=== PATIENT | female | born 1940 | race Caucasian/White ===

== ENCOUNTER 2017-04-20 10:28 | Emergency (ER) | payer MEDICARE, MEDICAID ==
[~2017-04-20] VITALS: Ht 172.7 cm; Wt 83.4 kg
[2017-04-20 11:21] LABS: BASOPHILS # (AUTO) 0.02 x10^3/uL (0-0.1); BASOPHILS % (AUTO) 0 % (0-1); EOSINOPHILS % (AUTO) 0 % (1-7); LYMPHOCYTES # (AUTO) 0.62 x10^3/uL (1-3.4); LYMPHOCYTES % (AUTO) 10 % (22-44); MD NO; MEAN CORPUSCULAR HEMOGLOBIN 30.5 pg (27.0-34.8); MEAN CORPUSCULAR HGB CONC 33.8 g/dL (32.4-35.8); MEAN CORPUSCULAR VOLUME 90.4 fL (80-100); MEAN PLATELET VOLUME 9.7 fL (7.4-10.4); MONOCYTES # (AUTO) 0.84 x10^3/uL (0.2-0.8); MONOCYTES % (AUTO) 14 % (2-9); NEUTROPHILS % (AUTO) 76 % (42-75); PLATELET COUNT 179 x10^3/uL (130-400); RED BLOOD COUNT 5.48 x10^6/uL (3.82-5.3); RED CELL DISTRIBUTION WIDTH 13.8 % (9.6-15.2)
[2017-04-20] MEDS ORDERED: PROMETHAZINE/COD. 10MG/6.25MG/5 ML ORAL SOL PO ONE (11:30)
[2017-04-20 11:53] LABS: RAPID INFLUENZA A POSITIVE (Negative); RAPID INFLUENZA B Negative (Negative)
[2017-04-20 12:09] LABS: ALBUMIN 3.5 g/dL (3.4-5.0); ANION GAP 7 mmol/L (5-15); CALCIUM 8.4 mg/dL (8.5-10.1); CHLORIDE 106 mmol/L (98-107); CREATININE 0.97 mg/dL (0.55-1.02)
[2017-04-20 13:20] VITALS: BP 125/78
== END 2017-04-20 13:54 | disposition home or self-care (01) ==
LOC: ED 11:11
DX: J09.X2 Influenza due to identified novel influenza A virus with other respiratory manifestations (principal); I25.2 Old myocardial infarction; Z86.73 Personal history of transient ischemic attack (TIA), and cerebral infarction without residual deficits
CPT/HCPCS: 36415; 71010; 80048; 82040; 85025; 87400; 93005; 99285

== ENCOUNTER 2017-11-24 07:30 | Emergency (ER) | payer MEDICARE, MEDICAID ==
[~2017-11-24] VITALS: Ht 167.6 cm; Wt 80.6 kg
[2017-11-24 07:33] VITALS: BP 135/80
== END 2017-11-24 09:15 | disposition home or self-care (01) ==
LOC: ED 08:55
DX: K08.89 Other specified disorders of teeth and supporting structures (principal); I25.2 Old myocardial infarction; Z88.1 Allergy status to other antibiotic agents; Z88.0 Allergy status to penicillin; Z88.8 Allergy status to other drugs, medicaments and biological substances
CPT/HCPCS: 99283

== ENCOUNTER 2019-04-28 00:06 | Emergency (ER) | payer MEDICARE, MEDICAID ==
[~2019-04-28] VITALS: Ht 162.6 cm; Wt 58.0 kg
[2019-04-28 00:16] VITALS: BP 108/41
== END 2019-04-28 01:01 | disposition home or self-care (01) ==
LOC: ED 00:30
DX: B86 Scabies (principal)
CPT/HCPCS: 99283

== ENCOUNTER 2019-05-13 08:22 | Emergency (ER) | payer MEDICARE, MEDICAID ==
[~2019-05-13] VITALS: Ht 165.1 cm; Wt 61.4 kg
[2019-05-13 09:29] LABS: BASOPHILS # (AUTO) 0.02 x10^3/uL (0-0.1); BASOPHILS % (AUTO) 0 % (0-1); EOSINOPHILS # (AUTO) 0.03 x10^3/uL (0-0.4); EOSINOPHILS % (AUTO) 0 % (1-7); LYMPHOCYTES # (AUTO) 0.62 x10^3/uL (1-3.4); LYMPHOCYTES % (AUTO) 6 % (22-44); MD NO; MEAN CORPUSCULAR HGB CONC 33.5 g/dL (32.4-35.8); MEAN CORPUSCULAR VOLUME 92.6 fL (80-100); MEAN PLATELET VOLUME 8.9 fL (7.4-10.4); MONOCYTES # (AUTO) 0.72 x10^3/uL (0.2-0.8); MONOCYTES % (AUTO) 7 % (2-9); NEUTROPHILS # (AUTO) 9.76 x10^3/uL (1.8-6.8); NEUTROPHILS % (AUTO) 88 % (42-75); PLATELET COUNT 223 x10^3/uL (130-400); RED BLOOD COUNT 4.93 x10^6/uL (3.82-5.3); RED CELL DISTRIBUTION WIDTH 13.6 % (9.6-15.2)
[2019-05-13 09:37] LABS: ALANINE AMINOTRANSFERASE 9 U/L (12-78); ALBUMIN 2.9 g/dL (3.4-5.0); ANION GAP 7 mmol/L (5-15); CALCIUM 8.4 mg/dL (8.5-10.1); CHLORIDE 110 mmol/L (98-107); CREATININE 0.66 mg/dL (0.55-1.02)
[2019-05-13 09:42] LABS: ALKALINE PHOSPHATASE 62 U/L (45-117); TOTAL PROTEIN 6.4 g/dL (6.4-8.2); TROPONIN I < 0.015 ng/mL (0.000-0.045)
--- NOTE | 2019-05-13 11:22 | NUR ---
PIV INSERTED. CALLED CT AND NOTIFIED ANA IN CT THAT PATIENT IS READY FOR CT.
[2019-05-13] MEDS ORDERED: OMNIPAQUE 350 MG/ML, 100ML BOTTLE ONE (11:53)
--- NOTE | 2019-05-13 12:06 | NUR ---
BREAK RN: PT OOB TO BEDSIDE COMMODE WITH MIN ASSIST. VOIDED W/O DIFFICULTY AND RTD TO BED W/O INCIDENT. VSS. WARM BLANKET PROVIDED. CALL LIGHT W/I REACH
[2019-05-13 12:07] VITALS: BP 126/62
--- NOTE | 2019-05-13 12:28 | NUR ---
BREAK RN: Patient/Caregiver given discharge instructions and they have confirmed that they understand the instructions. Patient in personal wheelchair.
== END 2019-05-13 12:28 | disposition home or self-care (01) ==
LOC: ED 12:18
DX: B34.9 Viral infection, unspecified (principal); I44.7 Left bundle-branch block, unspecified; I25.2 Old myocardial infarction; J44.9 Chronic obstructive pulmonary disease, unspecified; Z86.73 Personal history of transient ischemic attack (TIA), and cerebral infarction without residual deficits; Z90.710 Acquired absence of both cervix and uterus
CPT/HCPCS: 36415; 71046; 71275; 80053; 83880; 84484; 85025; 85379; 93005; 99284; Q9967

== ENCOUNTER 2020-07-02 12:46 | Inpatient (IN) | payer MEDICARE, MEDICAID ==
[~2020-07-02] VITALS: Ht 162.6 cm; Wt 66.3 kg
--- NOTE | 2020-07-02 13:43 | NUR ---
pt is an 79f who lives at home with her son. She comes in today with complaints of increasing back pain. She has chronic back issues but within the last week, she has been unable to sleep, change positions in bed or get up and walk. She describes the pain as intermittant spasms and is teary on the gurney. She is a max assist to transfer from her wheelchair to the bed. Son is at bedside. , BP, SPo2 monitors in place and call light within reach.
[2020-07-02] MEDS ORDERED: MORPHINE SULFATE 4 MG/ML, 1ML IVPush PRN (14:00)
[2020-07-02] MEDS ORDERED: ONDANSETRON 2MG/ML, 2ML IVPush ONE (14:00)
[2020-07-02] MEDS ORDERED: MORPHINE SULFATE 4 MG/ML, 1ML ONE (14:10)
[2020-07-02] MEDS ORDERED: ONDANSETRON 2MG/ML, 2ML ONE (14:10)
[2020-07-02 14:18] LABS: BASOPHILS % (AUTO) 1 % (0-1); EOSINOPHILS % (AUTO) 1 % (1-7); LYMPHOCYTES % (AUTO) 12 % (22-44); MEAN CORPUSCULAR HEMOGLOBIN 30.7 pg (27.0-34.8); MONOCYTES % (AUTO) 7 % (2-9); NEUTROPHILS % (AUTO) 79 % (42-75); PLATELET COUNT 181 x10^3/uL (130-400); RED BLOOD COUNT 5.02 x10^6/uL (3.82-5.3); RED CELL DISTRIBUTION WIDTH 13.1 % (9.6-15.2)
[2020-07-02 14:26] LABS: MD NO
[2020-07-02 14:30] LABS: ALANINE AMINOTRANSFERASE 14 U/L (12-78); ALBUMIN 2.9 g/dL (3.4-5.0); ANION GAP 8 mmol/L (5-15); CHLORIDE 113 mmol/L (98-107); CREATININE 0.62 mg/dL (0.55-1.02)
[2020-07-02 14:33] LABS: ALKALINE PHOSPHATASE 67 U/L (45-117); BILIRUBIN,TOTAL 0.7 mg/dL (0.2-1.0); TOTAL PROTEIN 5.9 g/dL (6.4-8.2)
[2020-07-02] MEDS ORDERED: OXYcodone/APAP 5/325MG TABLET ONE (14:39)
[2020-07-02] MEDS ORDERED: OXYcodone/APAP 5/325MG TABLET PO ONE (15:00)
[2020-07-02 15:39] LABS: MICROSCOPIC INDICATED
--- NOTE | 2020-07-02 16:04 | NUR ---
PT RESTING COMFORTABLY ON GURNEY WITH SON AT BEDSIDE. SHE STATES THE PERCOCET HAS HELPED A LOT. 06/02 PAIN NOW. ALL MONITORS IN PLACE AND CALL LIGHT WITHIN REACH.
--- NOTE | 2020-07-02 16:13 | NUR ---
PT REQUESTS A PRESCRIPTION FOR AN ELEVATED TOILET SEAT AND FOR THE PERCOCET SHE WAS GIVEN HERE IN THE ER.
--- NOTE | 2020-07-02 17:11 | NUR ---
PT LIVES WITH SONALFREDO [phone]
--- NOTE | 2020-07-02 17:21 | NUR ---
pt is resting comfortably on gurney. respirations even and unlabored. call light within reach and all monitors inplace. awaiting admit orders.
[2020-07-02] MEDS ORDERED: POLYETHYLENE GLYCOL 17 GM PACKET PO PRN (18:00)
[2020-07-02] MEDS ORDERED: ONDANSETRON ODT 4 MG PO PRN (18:00)
[2020-07-02] MEDS ORDERED: BISACODYL 10 MG SUPP PR PRN (18:00)
[2020-07-02] MEDS ORDERED: ACETAMINOPHEN 325 MG TABLET PO PRN (18:00)
[2020-07-02] MEDS ORDERED: CIPROFLOXACIN/PMX 400MG/200ML 200 ML IVPB ONE (19:00)
--- NOTE | 2020-07-02 19:04 | NUR ---
REPORT FROM YENNY WRIGHT. PIV PLACED. PT RESTING WITH NO NEEDS AT THIS TIME. CALL LIGHT IN REACH
--- NOTE | 2020-07-02 19:23 | NUR ---
ATTEMPTED TO CALL REPORT ON PT. RN UNABLE TO TAKE REPORT BECAUSE SHE IS STILL RECIEVE REPORT ON FLOOR.
[2020-07-02] MEDS ORDERED: NITROFURANTOIN (MACROBID) 100 MG CAPSULE PO SCH (21:00)
[2020-07-02 22:16] VITALS: BP 152/88
[2020-07-02] MEDS: LIDODERM 5% PATCH TD SCH (22:29)
[2020-07-02] MEDS: SODIUM CHLORIDE 0.9% 1,000 ML IV SCH (22:29)
[2020-07-03 02:06] VITALS: BP 124/86
[2020-07-03 05:54] LABS: BASOPHILS % (AUTO) 1 % (0-1); EOSINOPHILS % (AUTO) 3 % (1-7); LYMPHOCYTES % (AUTO) 28 % (22-44); MEAN CORPUSCULAR HGB CONC 34.3 g/dL (32.4-35.8); MEAN PLATELET VOLUME 9.9 fL (7.4-10.4); MONOCYTES % (AUTO) 9 % (2-9); NEUTROPHILS % (AUTO) 59 % (42-75); PLATELET COUNT 166 x10^3/uL (130-400); RED BLOOD COUNT 4.65 x10^6/uL (3.82-5.3); RED CELL DISTRIBUTION WIDTH 13.1 % (9.6-15.2)
[2020-07-03 05:58] LABS: ANION GAP 7 mmol/L (5-15); CALCIUM 7.9 mg/dL (8.5-10.1); CHLORIDE 112 mmol/L (98-107)
[2020-07-03 06:01] LABS: CREATININE 0.52 mg/dL (0.55-1.02); MD NO
[2020-07-03 07:30] VITALS: BP 118/68
[2020-07-03] MEDS: SENNA/DOCUSATE TABLET PO SCH (09:00)
[2020-07-03] MEDS: LIDODERM REMOVE PATCH NOTE XX SCH ×2 (09:00→21:25)
[2020-07-03] MEDS: CIPROFLOXACIN/PMX 400MG/200ML 200 ML IV SCH ×2 (10:33→21:26)
[2020-07-03 12:55] VITALS: BP 120/79
[2020-07-03] MEDS: SODIUM CHLORIDE 0.9% 1,000 ML IV SCH (14:54)
[2020-07-03 20:40] VITALS: BP 124/68
[2020-07-03] MEDS: LIDODERM 5% PATCH TD SCH (21:27)
[2020-07-03] MEDS: DIPHENHYDRAMINE 25 MG CAPSULE PO PRN (21:28)
[2020-07-04 01:33] VITALS: BP 115/66
[2020-07-04] MEDS: SODIUM CHLORIDE 0.9% 1,000 ML IV SCH ×2 (06:01→17:42)
[2020-07-04 06:13] LABS: BASOPHILS % (AUTO) 1 % (0-1); EOSINOPHILS % (AUTO) 4 % (1-7); LYMPHOCYTES % (AUTO) 30 % (22-44); MEAN CORPUSCULAR HEMOGLOBIN 30.2 pg (27.0-34.8); MEAN CORPUSCULAR HGB CONC 33.6 g/dL (32.4-35.8); MEAN PLATELET VOLUME 10.3 fL (7.4-10.4); MONOCYTES % (AUTO) 9 % (2-9); NEUTROPHILS % (AUTO) 56 % (42-75); PLATELET COUNT 159 x10^3/uL (130-400); RED BLOOD COUNT 4.61 x10^6/uL (3.82-5.3); RED CELL DISTRIBUTION WIDTH 12.9 % (9.6-15.2)
[2020-07-04 06:22] LABS: CHLORIDE 114 mmol/L (98-107)
[2020-07-04 06:35] LABS: MD NO
[2020-07-04 06:36] LABS: ALANINE AMINOTRANSFERASE 12 U/L (12-78); ALBUMIN 2.6 g/dL (3.4-5.0); ALKALINE PHOSPHATASE 54 U/L (45-117); BILIRUBIN,TOTAL 0.5 mg/dL (0.2-1.0); CALCIUM 8.2 mg/dL (8.5-10.1); CREATININE 0.58 mg/dL (0.55-1.02); TOTAL PROTEIN 5.4 g/dL (6.4-8.2)
[2020-07-04 06:57] LABS: ANION GAP 7 mmol/L (5-15)
[2020-07-04 07:06] LABS: HCT (SEDRATE) 40.6 % (34.6-47.8)
[2020-07-04 07:31] VITALS: BP 130/77
[2020-07-04] MEDS: SENNA/DOCUSATE TABLET PO SCH (09:04)
[2020-07-04] MEDS: LIDODERM REMOVE PATCH NOTE XX SCH ×2 (10:28→22:17)
[2020-07-04] MEDS: CIPROFLOXACIN/PMX 400MG/200ML 200 ML IV SCH ×2 (10:28→22:20)
[2020-07-04] MEDS ORDERED: OMNIPAQUE 350 MG/ML, 100ML BOTTLE ONE (12:30)
[2020-07-04 14:13] VITALS: BP 127/76
[2020-07-04 19:51] VITALS: BP 113/77
[2020-07-04] MEDS: LIDODERM 5% PATCH TD SCH (22:16)
[2020-07-04] MEDS: DIPHENHYDRAMINE 25 MG CAPSULE PO PRN (22:38)
[2020-07-05 03:58] VITALS: BP 121/74
[2020-07-05] MEDS: SODIUM CHLORIDE 0.9% 1,000 ML IV SCH (06:38)
[2020-07-05 07:19] VITALS: BP 131/87
[2020-07-05 07:53] LABS: ALANINE AMINOTRANSFERASE 11 U/L (12-78); ALBUMIN 2.9 g/dL (3.4-5.0); ANION GAP 7 mmol/L (5-15); CHLORIDE 114 mmol/L (98-107)
[2020-07-05 07:55] LABS: ALKALINE PHOSPHATASE 63 U/L (45-117); BILIRUBIN,TOTAL 0.6 mg/dL (0.2-1.0); TOTAL PROTEIN 5.8 g/dL (6.4-8.2)
== END 2020-07-05 09:00 | disposition left against medical advice (07) | DRG 690 ==
LOC: ED 14:18 → EDIP 17:59 → 4NE 21:00
PROVIDERS: ADMIT Hospitalist; ATTEND Internal Medicine
PROC: 0T9B70Z Drainage of Bladder with Drainage Device, Via Natural or Artificial Opening (ICD-10-PCS; principal; 2020-07-02)
DX: N39.0 Urinary tract infection, site not specified (principal); M54.40 Lumbago with sciatica, unspecified side; M54.10 Radiculopathy, site unspecified; E83.51 Hypocalcemia; E88.09 Other disorders of plasma-protein metabolism, not elsewhere classified; B96.20 Unspecified Escherichia coli [E. coli] as the cause of diseases classified elsewhere; E11.9 Type 2 diabetes mellitus without complications; J43.9 Emphysema, unspecified; M41.9 Scoliosis, unspecified; M54.9 Dorsalgia, unspecified; R53.81 Other malaise; G89.29 Other chronic pain; I25.2 Old myocardial infarction; Z82.49 Family history of ischemic heart disease and other diseases of the circulatory system; Z85.3 Personal history of malignant neoplasm of breast; Z86.73 Personal history of transient ischemic attack (TIA), and cerebral infarction without residual deficits; Z88.1 Allergy status to other antibiotic agents; Z90.710 Acquired absence of both cervix and uterus; Z99.3 Dependence on wheelchair; Z88.3 Allergy status to other anti-infective agents; Z88.0 Allergy status to penicillin; Z88.2 Allergy status to sulfonamides
CPT/HCPCS: 36415; 72131; 72148; 74178; 76770; 80048; 80053; 81001; 84100; 85025; 85651; 87077; 87086; 87186; 96374; G0378; J0744; Q9967; J7030; Q0163